=== PATIENT | female | born 1930 | race African-American/Black ===

== ENCOUNTER 2016-06-25 15:07 | Inpatient (IN) | payer MEDICARE, OTHER ==
--- NOTE | ~2016-06-25 | DS ---
Discharge Summary [facility] [address] [place]. [address] NAME: SHIVA GREGORIO : [birth year] STATUS : DIS Byron PAT#: [id number] AGE: 85 ADM/REG DATE : 06/25/16 MR#: [id number] REPORT SERV DATE: 06/27/16 DICTATED BY: ROSELINE IZQUIERDO DATE: 06/27/16 REPORT STATUS : Draft TRANSCRIBED BY: MODTien DATE: 06/27/16 ADMISSION DATE: 06/25/2016 DISCHARGE DATE: 06/27/2016 CONSULTATION: Gastroenterology Dr. Ashley Casey. PROCEDURE: 1. Upper GI endoscopy, impressions, widely patent nonobstructing Schatzki's ring. (LA) Grade D esophagitis. 2. Multiple plaques in the lower third of the esophagus. Cells for cytology obtained. 3. 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 Gastritis. Biopsied. 4. A single small plaque (nodule) with no bleeding and no stigmata of recent bleeding was found in the stomach. Biopsied. 5. Hiatal hernia. 6. Normal bulb and second part of the duodenum. RECOMMENDATION: Protonix p.o. 40 mg b.i.d. for eight weeks. DISCHARGE DIAGNOSES: 1. Upper gastrointestinal bleed, secondary to erosive gastritis. 2. Esophagitis. 3. Schatzki's ring without obstruction. 4. Diaphragmatic hernia without obstruction or gangrene. 5. Erosive gastritis. 6. Normocytic anemia, secondary to acute gastrointestinal bleed. 7. Vitamin B12 deficiency. 8. Hypertension. 9. History of abdominal aortic aneurysm repair by Dr. Harris. 10.Peripheral artery disease. 11.History of colonic polyps, noted by Dr. Jacob Zimmer. HISTORY OF PRESENT ILLNESS: For detailed H and P, make reference to Dr. Jacob Raines dictation on 06/25/2016. In brief, this is an 85-year-old female, with medical history of hypertension, colonic polyps, who was seen at Dr. Harris's office for evaluation of abdominal aortic aneurysm. She was noted to have significant shortness of breath. The patient was sent to the ER. On arrival to the ER, the patient was found to have a hemoglobin of 4.1. The patient endorsed history of chronic black stools. Stool was Hemoccult positive in the ER. Gastroenterology was consulted. The patient was started on Protonix drip and admitted to the Hospitalist Service. HOSPITAL COURSE: Acute upper GI bleed. The patient was continue on Protonix drip. She received three units of blood transfusion. Hemoglobin improved from 4.1, subsequently to 9.0 and remained stable. The patient underwent upper endoscopy that shows erosive gastritis of possible source of bleeding. No other stigmata of GI bleed noted. The patient was transitioned from IV PPI to p.o. PPI. The patient's aspirin was discontinued. The patient was advised to continue follow up with primary care physician. The patient was also advised Discharge Summary [address] [place]. [address] NAME: SHIVA GREGORIO : [birth year] STATUS : DIS Byron PAT#: [id number] AGE: 85 ADM/REG DATE : 06/25/16 MR#: [id number] REPORT SERV DATE: 06/27/16 DICTATED BY: ROSELINE IZQUIERDO DATE: 06/27/16 REPORT STATUS : Draft TRANSCRIBED BY: CYNDI DATE: 06/27/16 to continue follow up with primary doll eye setter, Dr. Zimmer as an outpatient within one to two weeks of discharge. The patient was also advised to continue p.o. PPI as recommended by GI for additional eight weeks. Hypertension. The patient's blood pressure was significantly elevated during the course of this admission. The patient's nifedipine was increased to 90 mg p.o. daily. The patient's blood pressure trended down back into the 130s and remained stable. The patient was advised to continue all prescribed home antihypertensives and follow up with primary care physician. Gastroesophageal reflux. The patient was continued on PPI as prescribed. Vitamin B12 deficiency. The patient's vitamin B12 level was checked, it was 169, which was extremely low. The patient was placed on vitamin B12 1000 mcg p.o. daily and continue follow up with primary care physician. Iron deficiency anemia, secondary to chronic GI blood loss. The patient was continued on iron sulfate 325 mg p.o. daily and was advised to continue follow up with primary care physician. DISCHARGE CONDITION: Stable. DISCHARGE ACTIVITY: As tolerated. DISCHARGED DIET: Low-salt diet. FOLLOWUP: The patient advised to continue follow up with primary care physician. Follow up with Gastroenterology within one to two weeks of discharge. A total of 35 minutes was used to prepare this patient's discharge, reconcile medication, and advised the patient on discharge plans and followup. IOO/MODL Roseline Izquierdo MD / [id number] CC: MD César German M.D. David Collins, M.D. Memo Harris M.D.
--- NOTE | ~2016-06-25 | EGD ---
EGD REPORT [facility] [address] [address] NAME: ALE JAMES : [birth year] STATUS : ADM Byron PAT#: [id number] AGE: 85 ADM/REG DATE : 06/25/16 MR#: [id number] REPORT SERV DATE: 06/26/16 DICTATED BY: KRISTINE VALENTINE DATE: 06/26/16 REPORT STATUS : Draft [facility]ANSCRIBED [facility]: [facility] DATE: 06/26/16 Endoscopy Center Patient Name: Ale James Date of : 1930 Attending MD: KRISTINE VALENTINE, Procedure Date No Time: 06/26/2016 Procedure: Upper GI endoscopy Indications: Anemia, Dark stools Medicines: Propofol per Anesthesia Complications: No immediate complications. Estimated blood loss: None. Procedure: Pre-Anesthesia Assessment: - ASA Grade Assessment: III - A patient with severe systemic disease. After obtaining informed consent, the endoscope was passed under direct vision. Throughout the procedure, the patient's blood pressure, pulse, and oxygen saturations were monitored continuously. The GIF [id number] was introduced through the mouth, and advanced to the second part of duodenum. The upper GI endoscopy was accomplished with ease. The patient tolerated the procedure well. Findings: A widely patent and non-obstructing Schatzki ring (acquired) was found in the lower third of the esophagus. LA Grade D (one or more mucosal breaks involving at least 75% of esophageal circumference) esophagitis with no bleeding was found 33 to 40 cm from the incisors. Overlying the esophagitis there were multiple small white plaques were found in the lower third of the esophagus. [place] cytology was performed. Estimated blood loss: none. Two diminuitive diverticula (<5mm) with a small opening was found in the lower third of the esophagus. A 2 cm hiatus hernia was present. Mild inflammation characterized by congestion (edema) and erythema was found in the gastric body and in the gastric antrum. Biopsies were taken with a cold forceps for Helicobacter pylori testing. Estimated blood loss: none. A single small papule (nodule) with no bleeding and no stigmata of recent bleeding was found in the gastric body. Biopsies were taken with a cold forceps for histology. Estimated blood loss: none. A hiatus hernia was present. There was a sharp angulation at the prepyloric area with slight narrowing of the pylorus which the endoscope easily passed through. The duodenal bulb and 2nd part of the duodenum were normal. EGD REPORT [address] [address] NAME: ALE JAMES : [birth year] STATUS : ADM Byron PAT#: [id number] AGE: 85 ADM/REG DATE : 06/25/16 MR#: [id number] REPORT SERV DATE: 06/26/16 DICTATED BY: KRISTINE VALENTINE DATE: 06/26/16 REPORT STATUS : Draft TRANSCRIBED BY: [employer] DATE: 06/26/16 Impression: - Widely patent and non-obstructing Schatzki ring. - LA Grade D esophagitis. - Multiple plaques in the lower third of the esophagus. Cells for cytology obtained. 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 - Hiatus hernia. - Gastritis. Biopsied. - A single small papule (nodule) with no bleeding and no stigmata of recent bleeding was found in the stomach. Biopsied. - Hiatus hernia. - Normal duodenal bulb and 2nd part of the duodenum. Recommendation: - [facility]. - Full liquid diet today and advance as tolerated. - Use Protonix (pantoprazole) 40 mg IV BID for now. Will need 8 weeks of BID PPI therapy. - Await pathology results. 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 All rights reserved. The codes documented in this report are preliminary and upon behavioral health consultant review may be revised to meet current compliance requirements. KRISTINE VALENTINE, 06/26/2016 8:11 AM This report has been signed electronically. Number of Addenda: 0 EGD REPORT [facility] [address] [address] NAME: ALE JAMES : [birth year] STATUS : ADM Byron PAT#: [id number] AGE: 85 ADM/REG DATE : 06/25/16 MR#: [id number] REPORT SERV DATE: 06/26/16 DICTATED BY: KRISTINE VALENTINE DATE: 06/26/16 REPORT STATUS : Draft TRANSCRIBED BY: [employer] DATE: 06/26/16 Note Initiated On: 06/26/2016 6:41 AM Scope Withdrawal Time 0 hours 0 minutes 0 seconds [id number] [id number]
--- NOTE | ~2016-06-25 | CN ---
Consultation Report [facility] [address] [place]. [address] NAME: SHIVA JAMES : [birth year] STATUS : ADM Byron PAT#: [id number] AGE: 85 ADM/REG DATE : 06/25/16 MR#: [id number] REPORT SERV DATE: 06/26/16 DICTATED BY: KRISTINE CASEY DATE: 06/26/16 REPORT STATUS : Draft TRANSCRIBED BY: MODL DATE: 06/26/16 GI CONSULTATION DATE OF CONSULTATION: 06/25/2016 REASON FOR CONSULTATION: Dark stool, anemia. HISTORY OF PRESENT ILLNESS: Ms James is an 85-year-old black female, who follows with Dr. Jacob Zimmer, who presented to [facility] with increasing fatigue and was found to be anemic with a hemoglobin of 4.9, hematocrit of 17, MCV was 82.5, platelets 436, INR 1.1, ICE-cp-fmjxjicspv ratio was 30 to 1.48 respectively. She reports that she has had dark stool for about a month, but did not pay attention to this as she is also on iron. Has been feeling more fatigued as of late. Had an EGD and colonoscopy performed by Dr. Zimmer for iron deficiency anemia in 2009, which showed AVMs in the stomach and some mild esophagitis. Colonoscopy showed diminutive polyp, less than 5 mm in size, in the transverse colon, found to be a tubular adenoma and diverticulosis. She denies any coffee-ground or hematemesis. Denies any abdominal pain, nausea or vomiting. Denies any dysphagia. She has also had about a 30-pound weight loss in the past several months. PAST MEDICAL HISTORY: Stroke, hypertension, diabetes, history of colon polyps, diverticulosis, iron deficiency anemia, abdominal aortic aneurysm, peripheral vascular disease with stents. PAST SURGICAL HISTORY: Stent placement as above, status post hysterectomy, hip replacement, thyroid resection, AICD. MEDICATIONS: Reviewed. ALLERGIES: REVIEWED. PHYSICAL EXAMINATION: GENERAL: The patient is an elderly female, in no acute distress. The patient is awake, alert, and oriented x3. Thin. VITAL SIGNS: Afebrile. Vital signs stable. HEENT: Atraumatic, normocephalic. Anicteric. Mucous membranes moist. CARDIAC: S1, S2. CHEST: Clear. ABDOMEN: Soft, nontender, nondistended. Bowel sounds normoactive. LABORATORY DATA: Showed WBC 9.3, hemoglobin 4.9, hematocrit 17, platelets 436, MCV 82.5. INR is 1.1. Sodium 141, potassium 3.9, chloride 104, bicarb 28, BUN 30, creatinine 1.48, glucose 156. IMPRESSION AND PLAN: I reviewed the patient's history including her previous endoscopy with Consultation Report [place] [address] [place]. [address] NAME: SHIVA JAMES : [birth year] STATUS : ADM Byron PAT#: [id number] AGE: 85 ADM/REG DATE : 06/25/16 MR#: [id number] REPORT SERV DATE: 06/26/16 DICTATED BY: KRISTINE CASEY DATE: 06/26/16 REPORT STATUS : Draft TRANSCRIBED BY: CYNDI DATE: 06/26/16 Dr. Zimmer as I am covering for him over the weekend. We will go ahead and proceed with an EGD tomorrow. We will start the patient on Protonix, is currently only on oral once daily, and make n.p.o. after midnight for an EGD tomorrow. I have reviewed the procedure, indications, risks, benefits, and alternatives with the patient. She is agreeable to proceed. Questions and concerns were addressed. DENA/CYNDI Kristine Casey MD / [id number] CC: Jett Rodriguez M.D.
--- NOTE | ~2016-06-25 | HP ---
History And Physical [place] [id number] [facility] [place]. [address] NAME: SHIVA GREGORIO : [birth year] STATUS : ADM Byron PAT#: [id number] AGE: 85 ADM/REG DATE : 06/25/16 MR#: [id number] REPORT SERV DATE: 06/25/16 DICTATED BY: LINCOLN MEDINA DATE: 06/25/16 REPORT STATUS : Draft TRANSCRIBED BY: MODL DATE: 06/25/16 DATE OF ADMISSION: 06/25/2016 ATTENDING PHYSICIAN: Dr. Rhoades. EXAMINING PHYSICIAN: Dr. Medina. REASON FOR ADMISSION: Acute blood loss anemia and GI bleeding. HISTORY OF PRESENT ILLNESS: This is an 85-year-old black female, who presented to Dr. Harris's office for evaluation of her abdominal aortic aneurysm earlier today. Nurse practitioner listened to her lungs and thought she had fluid. She was sent to the emergency room. Chest x-ray showed no fluid; however, hemoglobin showed 4.1. The patient has been complaining of dyspnea with exertion. She has had some dark stools and Dr. Van Lopez who saw her in the emergency room, found her stool to be Hemoccult positive. She does have a mean cell volume of 82. She has had surgery in the last year with a hip surgery on the right side. She has coronary artery disease and was stented by Dr. Avi Hurt but has had no chest pain. She has dyspnea with exertion. She is receiving blood 1 unit in the emergency room, now on Dr. Lopez's order and will be transferred to the floor for the care of Dr. Rhoades. Her primary anesthesia tech is Dr. Lincoln Rhoades. She has colonoscopies done about every five years for colonic polyps. She has not had a recent EGD done. PAST MEDICAL HISTORY: She has a history of diabetes. She was discharged on the following medications a year ago: Xanax 1 mg p.o. b.i.d. scheduled; Zantac 150 mg p.o. b.i.d.; iron 325 p.o. every morning; Imdur 30 mg p.o. q.a.m.; Synthroid 75 mcg p.o. at breakfast every morning; simvastatin 20 mg p.o. at bedtime; warfarin 1 mg p.o. daily was assumed to be for post hip prophylaxis; Tylenol 500 mg p.o. as needed for pain; Plavix 75 mg p.o. every morning. MiraLAX for constipation; metformin 1000 mg p.o. b.i.d.; milk of magnesia 30 mL p.o. p.r.n. constipation; oxycodone 5 mg q.6 hours as needed for pain. Systane eyedrops as needed for dry eyes. Tenoretic 50/25 one p.o. daily. She does have a history of diabetes type 2, hypothyroidism, and history of CVA about 18 months ago. She has had a repair for abdominal aortic aneurysm, peripheral vascular disease, and iliac stent in the past for peripheral vascular disease. She does have a history of colonic polyps. SOCIAL HISTORY: She has been for 6 to 7 years. She previously lived in [place], [place] but was born in [place], [place] around [place]. She had no cigarette or alcohol use. She attended [employer] in the past. She has three children who are alive and well. FAMILY HISTORY: She had 8 brothers and sisters, all of them older than she, they are all History And Physical [address] [address] NAME: SHIVA GREGORIO : [birth year] STATUS : ADM Byron PAT#: [id number] AGE: 85 ADM/REG DATE : 06/25/16 MR#: [id number] REPORT SERV DATE: 06/25/16 DICTATED BY: LINCOLN MEDINA DATE: 06/25/16 REPORT STATUS : Draft TRANSCRIBED BY: CYNDI DATE: 06/25/16 and all had high blood pressure. Most lived in and around [place], [place]. Mother and father both had high blood pressure and from related causes from that. REVIEW OF SYSTEMS: She denies any chest pain, does have shortness of breath, dyspnea on exertion, but no cough, fever, chills, or night sweats. No hemoptysis. No melena or hematemesis though her stools have been dark recently. No fits, seizures, convulsions, unilateral weakness, nausea, vomiting, or diarrhea. She does have early satiety, and a small amount of soup or food does her well for the whole day and she does not get hungry and she has been losing weight about 10 pounds a year for the last three years. Dr. Zimmer is her primary anesthesia tech and does colonoscopy on her and the last one was about four years ago. She has had no fever, chills, night sweats, or hematemesis. No nausea or vomiting. The remainder of the review of systems is negative. PHYSICAL EXAMINATION: GENERAL: Older black female, very pale in appearance. No acute distress. HEENT: EOMI. Sclerae clear. Conjunctivae pink. NECK: No bruit without any JVD. CHEST: Clear to A and P. HEART: Regular S1, S2 with PAC. ABDOMEN: Soft and nontender. Bowel sounds positive. No masses felt. EXTREMITIES: Have no edema. Distal pulses are intact. Trace in the dorsalis pedis, posterior tibial. NEUROLOGIC: She withdraws to plantar stimulation. Chemical Machine Tender is equal and symmetric bilaterally. Coordination intact. She has no tremor. She is symmetric neurologically. VITAL SIGNS: Include the following: Blood pressure 173/75 with a heart rate of 76, respiratory rate 16, oxygen saturation 99%, and temperature was 98 degrees. LYMPHATICS: There is no adenopathy. BREASTS: Grossly without mass. RECTAL: Exam was performed by Dr. Lopez and found to be heme-positive. LABORATORY DATA: The blood type was O negative. Her chest x-ray showed aortic sclerosis but no cardiopulmonary disease. Her sodium 141, potassium 3.9, creatinine was 1.48 with a BUN of 30, her GFR was 37 mL/minute. Glucose is 156. Magnesium 2.6. Troponin less than 0.03. Her white count was 9.3, hemoglobin 4.9, hematocrit 17%, and platelets were 436,000. MCV was 82.5. INR 1.1. ASSESSMENT: 1. Profound anemia. She has normochromic normocytic indices. We will check a B12 and an iron level to see if she has double deficiency because of the maintenance of the MCV. This has likely been going on for some time though with a normal MCV, there may be extenuating conditions. Review of her previous hematocrits have run in the 31 to 34 range with a low postoperatively at 20.6. 2. Probable iron-deficiency anemia. We will check ferritin, iron, and TIBC. 3. Weight loss, 30 pounds over the last three years. History And Physical [place] [id number] [facility] [place]. [address] NAME: SHIVA GREGORIO : [birth year] STATUS : ADM Byron PAT#: [id number] AGE: 85 ADM/REG DATE : 06/25/16 MR#: [id number] REPORT SERV DATE: 06/25/16 DICTATED BY: LINCOLN MEDINA DATE: 06/25/16 REPORT STATUS : Draft TRANSCRIBED BY: MODL DATE: 06/25/16 4. Peripheral vascular disease. 5. History of abdominal aortic aneurysm repair, Dr. Harris. 6. PACs. 7. EKG showing left ventricular hypertrophy with strain. Blood pressure is up now, hypertension is likely the source of this problem. 8. History of colonic polyps. Dr. Lincoln Zimmer has been her primary anesthesia tech, she calls him by name, we will therefore consult Dr. Zimmer for treatment. PLAN: The patient is admitted to Dr. Rhoades and we will plan to have Dr. Lincoln Rhoades see regarding possible endoscopy. With her early satiety, we would have to consider stomach as the most likely source of the GI blood loss initially as she has had colonoscopies done within the last 5 years. DB/MODL Lincoln Medina M.D. / [id number] CC: Jett Rodriguez M.D. David Collins, M.D. Christopher Lesar, M.D. Joshua Willis, M.D.
[2016-06-25 13:29] LABS: BASOPHILS 0.1 %; BASOPHILS ABSOLUTE 0.01 10/3/uL (0.0-0.16); EOSINOPHILS 0.9 %; EOSINOPHILS ABSOLUTE 0.08 10/3/uL (0.0-0.53); ER CBC TAT 0 Hrs 11 Mins; IMMATURE GRANULOCYTES 0.4 %; IMMATURE GRANULOCYTES ABSOLUTE 0.04 10/3/uL (0.0-0.11); LYMPHOCYTES 13.7 %; LYMPHOCYTES ABSOLUTE 1.27 10/3/uL (0.67-4.30); MEAN PLATELET VOLUME 7.8 fL (9.2-13.0); MONOCYTES 6.7 %; MONOCYTES ABSOLUTE 0.62 10/3/uL (0.21-1.20); NEUTROPHILS 78.2 %; NEUTROPHILS ABSOLUTE 7.25 10/3/uL (2.02-8.40); NUCLEATED RED BLOOD CELLS 0.6 /100WBC (0-0); PLATELET COUNT 436 10/3/uL (150-400); RBC DISTRIBUTION WIDTH 18.9 % (12.0-16.0); WHITE BLOOD CELLS 9.3 10/3/uL (4.5-10.5)
[2016-06-25 13:33] LABS: HEMOGLOBIN 4.9 g/dL (12.0-16.0); MANUAL DIFF NO %; MEAN CORPUS HGB CONC 28.8 g/dL (32.0-36.0); MEAN CORPUSCULAR HEMOGLOB 23.8 pg (26.0-34.0); MEAN CORPUSCULAR VOLUME 82.5 fL (80-100); RED CELL COUNT 2.06 10/6/uL (4.0-5.6)
[2016-06-25 13:35] LABS: INTERNATIONAL NORMAL RATI 1.1 UNITS (-); PROTIME (NOT ORD) 13.7 SEC (12.0-14.5)
[2016-06-25 13:38] LABS: PARTIAL THROMBO TIME 24.4 SEC (22.5-37.2)
[2016-06-25 13:41] LABS: BUN (BLOOD UREA NITROGEN) 30 MG/DL (6-23); CALCIUM, SERUM 9.6 MG/DL (8.5-10.4); CHEST PAIN PROFILE TAT 0 Hrs 23 Mins; CHLORIDE, SERUM 104 MMOL/L (96-112); CO2 (CARBON DIOXIDE) 28 MMOL/L (24-34); CREATININE 1.48 MG/DL (0.55-1.02); GFR AFRICAN AMERICAN 37 ML/MIN (>=60); GFR NON AFRICAN AMERICAN 32 ML/MIN (>=60); GLUCOSE, SERUM 156 MG/DL (60-99); POTASSIUM, SERUM 3.9 MMOL/L (3.5-5.3); SODIUM, SERUM 141 MMOL/L (135-148); TROPONIN I 0.03 NG/ML (<0.05)
[~2016-06-25 15:07] MED LIST: ACET500CAP PO; ASABAYER PO; EVISTA60 PO; FERROUS SULF325 M1 PO; GLUCOPHAGE1000 MG PO; GLUCPH PO; HALF81 PO; IMDUR30 PO; IRON325 MG PO; LEVOTHYROXIN75 MCG PO; NIFEDICAL XL60 MG PO; NORCO1 TA1 PO; NXL6 PO; PLAVIX PO; PRIN5 PO; PROTONIX PO; SYN075 PO; SYSTANE ULTR OP; SYSTANE ULTR OPH; TENORETIC1 TAB PO; TRIAMCINOLON0.05 % EX; XANAX1 MG PO; ZANTAC 150 PO; ZANTAC150 MG PO; ZOCOR20 PO; ZOCOR40 PO
[2016-06-25] MEDS ORDERED: XANAX1 MG PO (15:53)
[2016-06-25] MEDS ORDERED: ZANTAC 150 PO (15:54)
[2016-06-25] MEDS ORDERED: TENORETIC1 TAB PO (15:54)
[2016-06-25] MEDS ORDERED: PRIN5 PO (15:54)
[2016-06-25] MEDS ORDERED: IMDUR30 PO (15:55)
[2016-06-25] MEDS ORDERED: GLUCOPHAGE1000 MG PO (15:55)
[2016-06-25] MEDS ORDERED: LEVOTHYROXIN75 MCG PO (15:55)
[2016-06-25] MEDS ORDERED: ZOCOR20 PO (15:56)
[2016-06-25] MEDS ORDERED: PLAVIX PO (15:56)
[2016-06-25] MEDS ORDERED: NIFEDIAC CC60 MG PO (15:56)
[2016-06-25] MEDS ORDERED: FERROUS SULF325 M1 PO (15:58)
[2016-06-25] MEDS ORDERED: ASA5GR PO (15:58)
[2016-06-25] MEDS ORDERED: SYSTANE OPH (15:59)
[2016-06-25 18:47] LABS: FERRITIN 5 NG/ML (8-252); IRON BINDING CAPACITY 401 MCG/DL (225-410); IRON, SERUM 18 MCG/DL (35-150)
[2016-06-25 18:48] LABS: FOLATE 8.3 NG/ML (>5.2)
[2016-06-25 23:48] LABS: HEMATOCRIT 23.5 % (36.0-48.0); HEMOGLOBIN 7.5 g/dL (12.0-16.0)
[2016-06-26 05:17] LABS: HEMATOCRIT 21.2 % (36.0-48.0)
[2016-06-26 05:18] LABS: HEMOGLOBIN 6.7 g/dL (12.0-16.0)
[2016-06-26 16:24] LABS: BASOPHILS 0.3 %; BASOPHILS ABSOLUTE 0.02 10/3/uL (0.0-0.16); EOSINOPHILS 2.2 %; EOSINOPHILS ABSOLUTE 0.16 10/3/uL (0.0-0.53); HEMATOCRIT 28.2 % (36.0-48.0); HEMOGLOBIN 9.1 g/dL (12.0-16.0); IMMATURE GRANULOCYTES 0.4 %; IMMATURE GRANULOCYTES ABSOLUTE 0.03 10/3/uL (0.0-0.11); LYMPHOCYTES 15.4 %; LYMPHOCYTES ABSOLUTE 1.12 10/3/uL (0.67-4.30); MANUAL DIFF NO %; MEAN CORPUS HGB CONC 32.3 g/dL (32.0-36.0); MEAN CORPUSCULAR HEMOGLOB 26.5 pg (26.0-34.0); MEAN PLATELET VOLUME 8.1 fL (9.2-13.0); MONOCYTES 7.9 %; MONOCYTES ABSOLUTE 0.57 10/3/uL (0.21-1.20); NEUTROPHILS 73.8 %; NEUTROPHILS ABSOLUTE 5.35 10/3/uL (2.02-8.40); PLATELET COUNT 342 10/3/uL (150-400); RBC DISTRIBUTION WIDTH 16.4 % (12.0-16.0); RED CELL COUNT 3.44 10/6/uL (4.0-5.6); WHITE BLOOD CELLS 7.3 10/3/uL (4.5-10.5)
[2016-06-26 16:38] LABS: CALCIUM, SERUM 9.1 MG/DL (8.5-10.4); CHLORIDE, SERUM 102 MMOL/L (96-112); CO2 (CARBON DIOXIDE) 31 MMOL/L (24-34); CREATININE 1.16 MG/DL (0.55-1.02); GFR AFRICAN AMERICAN 49 ML/MIN (>=60); GFR NON AFRICAN AMERICAN 42 ML/MIN (>=60); POTASSIUM, SERUM 3.8 MMOL/L (3.5-5.3); SODIUM, SERUM 140 MMOL/L (135-148)
[2016-06-26 16:42] LABS: ALBUMIN 3.1 G/DL (3.5-5.0); BUN (BLOOD UREA NITROGEN) 20 MG/DL (6-23); GLUCOSE, SERUM 195 MG/DL (60-99); PHOSPHORUS, SERUM 2.4 MG/DL (2.5-4.5)
[2016-06-26 21:59] LABS: HEMATOCRIT 25.9 % (36.0-48.0); HEMOGLOBIN 8.4 g/dL (12.0-16.0)
[2016-06-27 06:57] LABS: HEMOGLOBIN 9.5 g/dL (12.0-16.0)
[2016-06-27 07:15] LABS: HEMATOCRIT 29.7 % (36.0-48.0)
[2016-06-27] MEDS ORDERED: NXL9 PO (16:58)
[2016-06-27] MEDS ORDERED: CYANO1000T PO (16:59)
[2016-06-27] MEDS ORDERED: FOLIC PO (16:59)
[2016-06-27] MEDS ORDERED: PROTONIX PO (17:00)
[2016-06-27] MEDS ORDERED: FESO4 PO (17:00)
[2016-08-26] MEDS ORDERED: XANAX1 MG PO (13:55)
[2016-08-26] MEDS ORDERED: ZOCOR20 PO (13:56)
[2016-08-26] MEDS ORDERED: FOLIC PO (13:57)
[2016-08-26] MEDS ORDERED: FERROUS SULF325 M1 PO (13:57)
[2016-08-26] MEDS ORDERED: ADALAT CC90 MG PO (13:58)
[2016-08-26] MEDS ORDERED: PROTONIX PO (13:58)
[2016-08-26] MEDS ORDERED: SYN075 PO (13:59)
[2016-08-26] MEDS ORDERED: TENORETIC1 TAB PO (14:00)
[2016-08-26] MEDS ORDERED: PRIN5 PO (14:01)
[2016-08-26] MEDS ORDERED: PLAVIX PO (14:01)
[2016-08-26] MEDS ORDERED: ZANTAC150 MG PO (14:01)
[2016-08-26] MEDS ORDERED: IMDUR30 PO (14:02)
[2016-08-26] MEDS ORDERED: GLUCOPHAGE1000 MG PO (14:03)
[2016-08-26] MEDS ORDERED: B12100T PO (14:04)
== END 2016-06-27 19:34 | disposition home or self-care (01) | DRG 378 ==
LOC: ER 15:07 → 6NO 15:32
PROVIDERS: Emergency Medicine; Hospitalist; Internal Medicine
PROC: 0DB68ZX Excision of Stomach, Via Natural or Artificial Opening Endoscopic, Diagnostic (ICD-10-PCS; principal; 2016-06-25)
DX: K29.61 Other gastritis with bleeding (principal); D62 Acute posthemorrhagic anemia; I73.9 Peripheral vascular disease, unspecified; Q39.6 Congenital diverticulum of esophagus; K22.2 Esophageal obstruction; K44.9 Diaphragmatic hernia without obstruction or gangrene; E53.8 Deficiency of other specified B group vitamins; Z86.010 Personal history of colon polyps; I10 Essential (primary) hypertension; I71.4 Abdominal aortic aneurysm, without rupture; K21.0 Gastro-esophageal reflux disease with esophagitis; Z90.710 Acquired absence of both cervix and uterus; Z96.649 Presence of unspecified artificial hip joint; Z86.73 Personal history of transient ischemic attack (TIA), and cerebral infarction without residual deficits; Z95.828 Presence of other vascular implants and grafts
CPT/HCPCS: 36415; 36430; 71020; 80048; 80069; 82607; 82728; 82746; 82962; 83036; 83540; 83550; 83735; 84484; 85014; 85018; 85025; 85610; 85730; 86850; 86900; 86901; 86920; 87210; 88305; 88342; 93005; 99291; A9270-GY; C9113; P9016

== ENCOUNTER 2016-08-26 14:39 | Emergency (ER) | payer MEDICARE, OTHER ==
[2016-08-26 13:42] LABS: BASOPHILS 0.3 %; BASOPHILS ABSOLUTE 0.02 10/3/uL (0.0-0.16); EOSINOPHILS 2.1 %; EOSINOPHILS ABSOLUTE 0.15 10/3/uL (0.0-0.53); HEMATOCRIT 30.3 % (36.0-48.0); HEMOGLOBIN 9.1 g/dL (12.0-16.0); IMMATURE GRANULOCYTES 0.4 %; IMMATURE GRANULOCYTES ABSOLUTE 0.03 10/3/uL (0.0-0.11); LYMPHOCYTES 20.6 %; LYMPHOCYTES ABSOLUTE 1.44 10/3/uL (0.67-4.30); MEAN CORPUSCULAR HEMOGLOB 25.6 pg (26.0-34.0); MEAN CORPUSCULAR VOLUME 85.1 fL (80-100); MEAN PLATELET VOLUME 8.5 fL (9.2-13.0); MONOCYTES 7.2 %; NEUTROPHILS 69.4 %; NEUTROPHILS ABSOLUTE 4.84 10/3/uL (2.02-8.40); RED CELL COUNT 3.56 10/6/uL (4.0-5.6)
[2016-08-26 13:43] LABS: MANUAL DIFF NO %; PLATELET COUNT 338 10/3/uL (150-400)
[2016-08-26 13:49] LABS: INTERNATIONAL NORMAL RATI 1.1 UNITS (-); PARTIAL THROMBO TIME 26.3 SEC (22.5-37.2); PROTIME (NOT ORD) 13.7 SEC (12.0-14.5)
[2016-08-26 13:59] LABS: CALCIUM, SERUM 9.7 MG/DL (8.5-10.4); CHLORIDE, SERUM 103 MMOL/L (96-112); CO2 (CARBON DIOXIDE) 30 MMOL/L (24-34); CREATININE 1.18 MG/DL (0.55-1.02); GFR AFRICAN AMERICAN 48 ML/MIN (>=60); GFR NON AFRICAN AMERICAN 41 ML/MIN (>=60); POTASSIUM, SERUM 3.7 MMOL/L (3.5-5.3); SODIUM, SERUM 140 MMOL/L (135-148)
[2016-08-26 14:00] LABS: BUN (BLOOD UREA NITROGEN) 16 MG/DL (6-23); GLUCOSE, SERUM 119 MG/DL (60-99)
[2016-08-26 14:01] LABS: CHEST PAIN PROFILE TAT 0 Hrs 25 Mins; TROPONIN I 0.07 NG/ML (<0.05)
[~2016-08-26 14:39] MED LIST changes: +ADALAT CC90 MG PO; +ASA5GR PO; +B12100T PO; +CYANO1000T PO; +FESO4 PO; +FOLIC PO; +NIFEDIAC CC60 MG PO; +NXL9 PO; +SYSTANE OPH
== END 2016-08-26 15:40 | disposition home or self-care (01) ==
LOC: ER 14:39
PROVIDERS: Emergency Medicine
DX: I10 Essential (primary) hypertension (principal); E11.9 Type 2 diabetes mellitus without complications; D64.9 Anemia, unspecified; Z86.73 Personal history of transient ischemic attack (TIA), and cerebral infarction without residual deficits; Z79.84 Long term (current) use of oral hypoglycemic drugs; Z79.899 Other long term (current) drug therapy
CPT/HCPCS: 71010; 80048; 83735; 84484; 85025; 85610; 85730; 93005; 99284